=== PATIENT | female | born 1950 | race Caucasian/White ===

== ENCOUNTER 2018-06-13 12:00 | Emergency (ER) | payer MEDICARE ==
[2018-06-13 13:54] VITALS: BP 134/67
--- NOTE | 2018-06-13 14:06 | UC ---
Respiratory Complaint HPI - HPI Summary HPI Summary: 67 y/o female presents to the urgent care c/o productive cough w/ green phlegm for the past week. Pt reports symptoms started w/ a common cold, nasal congestion and clear nasal discharge. She has been taking herbal supplements to alleviate symptoms w/o any improvement. For the past 2 days she is been having chills, fever on and off, mild wheezing, specially at night time. Pt denies SOB, chest pain, abdominal pain, N/V/D. Pt used to be a heavy everyday smoker. - History of Current Complaint Chief Complaint: UCGeneralIllness Stated Complaint: RUNNY NOSE,COUGH,CONGESTION Time Seen by Provider: 06/13/18 14:03 Hx Obtained From: Patient ?: No - menopausal Onset/Duration: Gradual Onset, Lasting Weeks - 1 week, Still Present, Worse Since - 2 days Timing: Intermittent Episodes Severity Initially: Mild Severity Currently: Moderate Pain Intensity: 0 Pain Scale Used: 0-10 Numeric Character: Cough: Productive, Sputum Description: - green phlegm Aggravating Factors: Recumbent Position Alleviating Factors: OTC Meds Associated Signs And Symptoms: Positive: Fever, Chills, Wheezing, URI, Nasal Congestion, Sinus Discomfort. Negative: Dyspnea, Hemoptysis, Dizziness, Calf Swelling - Risk Factors Pulmonary Embolism Risk Factors: Negative Cardiac Risk Factors: Negative Pseudomonas Risk Factors: Negative Tuberculosis Risk Factors: Negative - Allergies/Home Medications Allergies/Adverse Reactions: Allergies Allergy/AdvReac Type Severity Reaction Status Date / Time No Known Allergies Allergy Verified 06/13/18 13:51 Home Medications: Home Medications Ascorbic Acid [Vitamin C] 1 each PO DAILY 06/13/18 [History Confirmed 06/13/18] Vitamin E 1 each PO DAILY 06/13/18 [History Confirmed 06/13/18] Vitamins A and D [Vitamin A and D] 1 each PO DAILY 06/13/18 [History Confirmed 06/13/18] PMH/Surg Hx/FS Hx/Imm Hx Previously Healthy: Yes - Pt denies PMHX - Surgical History Surgical History: Yes Surgery Procedure, Year, and Place: TONSILLECTOMY - Family History Known Family History: Positive: Cardiac Disease, Hypertension - Social History Occupation: Retired Lives: With Family Alcohol Use: Weekly Substance Use Type: None Smoking Status (MU): Former Smoker Review of Systems Constitutional: Fever, Chills Skin: Negative Eyes: Negative ENT: Nasal Discharge - green, Sinus Congestion, Sinus Pain/Tenderness Respiratory: Cough - productive w/ green phlegm, Other - wheezing Cardiovascular: Negative Gastrointestinal: Negative Genitourinary: Negative Motor: Negative Neurovascular: Negative Musculoskeletal: Negative Neurological: Negative Psychological: Negative Is Patient Immunocompromised?: No All Other Systems Reviewed And Are Negative: Yes Physical Exam - Summary Physical Exam Summary: Vital Signs Reviewed: Yes General: well developed, well nourished thin female sitting in the examining table w/o any apparent distress Eyes: Positive: Conjunctiva Clear - PERRLA, EOMI, fundi grossly normal ENT: Positive: Normal ENT inspection, Hearing grossly normal, Pharynx normal, Nasal congestion - edematous and erythematous nasal mucosa, Nasal drainage - yellowish drainage, TMs normal. Negative: Tonsillar swelling, Tonsillar exudate Neck: Positive: Supple, Nontender, No Lymphadenopathy Respiratory: no orthopnea or dyspnea. Able to speak in full sentences, no retractions or accessory muscle use, no tripod position, stridor, or head bobbing. Positive breath sounds bilaterally. Diffuse scattered wheezing and rhonchi on b/L lungs, no crackles or rales. Cardiovascular: Positive: RRR, No Murmur, Pulses Normal, Brisk Capillary Refill Abdomen Description: Positive: Nontender, No Organomegaly, Soft. Negative: CVA Tenderness (R), CVA Tenderness (L) Bowel Sounds: Positive: Present Musculoskeletal Exam: Normal Musculoskeletal: Positive: Strength Intact, ROM Intact, No Edema Neurological Exam: Normal Psychological Exam: Normal Skin Exam: Normal Triage Information Reviewed: Yes Vital Signs: Initial Vital Signs Temp 98.5 F 06/13/18 13:49 Pulse 79 06/13/18 13:49 Resp 17 06/13/18 13:49 BP 134/67 06/13/18 13:49 Pulse Ox 95 06/13/18 13:49 UC Diagnostic Evaluation - Laboratory O2 Sat by Pulse Oximetry: 95 Respiratory Course/Dx - Course Course Of Treatment: 67 y/o female presents to the urgent care c/o productive cough w/ green phlegm for the past week. Pt reports symptoms started w/ a common cold, nasal congestion and clear nasal discharge. She has been taking herbal supplements to alleviate symptoms w/o any improvement. For the past 2 days she is been having chills, fever on and off, mild wheezing, specially at night time. Pt denies SOB, chest pain, abdominal pain, N/V/D. Pt used to be a heavy everyday smoker. Hx obtained. Pt w/diffuse scattered wheezing and rhonchi on b/L lungs on examination. O2SAt: 95%. Pt given Prednisone PO taper dose and Duoneb Treatment to alleviate symptoms. Pt tolerated well treatment and lungs improved,and wheezing resolved. Chest X-ray ordered: impression:Rt basilar pnemonia. Patient prescribed levofloxacin PO, Prednisone taper dose, Albuterol neb. and Tessalon Tabs to alleviate symptoms as directed below. The patient was recommended to increase fluid intake. Take medications as recommended. Pt advised to returned to the clinic or f/u or w/ her PCP in 2-3 days to make sure symptoms are improving. All D/C instructions explained. Patient understood and agreed w/ plan of care. D/c instructions explained. Pt left clinic hemodynamically stable , A&OX3 - Differential Dx/Diagnosis Differential Diagnosis/HQI/PQRI: Asthma, Bronchitis, Influenza, Laryngitis, Lower Resp Infection, Sinusitis, Other - pneumonia Provider Diagnoses: 1- Community acquired pneumonia. 2-Wheezing Discharge - Sign-Out/Discharge Documenting (check all that apply): Patient Departure - D/c home All imaging exams completed and their final reports reviewed: Yes - Discharge Plan Condition: Stable Disposition: HOME Prescriptions: Albuterol HFA INHALER* [Ventolin HFA Inhaler*] 1 - 2 puff INH Q4H PRN #1 mdi PRN Reason: Wheezing Benzonatate CAP* [Tessalon 100 MG CAP*] 100 mg PO TID #21 cap Levofloxacin TAB* [Levaquin 750 MG TAB*] 750 mg PO DAILY #7 tab predniSONE TAB* [Deltasone 20 MG TAB*] 20 mg PO DAILY #8 tab Patient Education Materials: Community Acquired Pneumonia (ED), Wheezing (ED) Referrals: [facility] [Outside] - 3 Days Additional Instructions: 1-Please take full course of antibiotic to avoid resistance. Please take Prednisone PO taper dose as directed starting tomorrow. First dose given today. 2-Take Tessalon PO tabs as directed and use the albuterol inhaler to alleviate cough and wheezing. Increase fluid intake, rest and eat well. 3- If symptoms do not improve or worsen or your develop SOB with fever and severe wheezing please go immediately to the ER further evaluation and treatment. 4- F/u with your PCP in 3 days if not improvement of symptoms for further management. - Billing Disposition and Condition Condition: STABLE Disposition: Home
[2018-06-13] MEDS ORDERED: Albuterol/Ipratropium NEB.SOL* Albuterol 2.5 MG/Ipratropium 0.5 MG 3 ML INH ONE (14:15)
[2018-06-13] MEDS ORDERED: predniSONE TAB* 20 MG PO ONE (14:15)
--- NOTE | 2018-06-13 15:53 | RAD ---
Indication: Productive cough and fever. 2 views of the chest including dual energy PA views are reviewed. No prior study is available for comparison. No mediastinal shift is noted. Heart is of normal size and configuration. Airspace disease in the right base is noted consistent with right basilar pneumonia. Left lung field is clear. IMPRESSION: Findings consistent with right basilar pneumonia.
== END 2018-06-13 16:11 | disposition home or self-care (01) ==
LOC: UCCORT 12:00
DX: J18.9 Pneumonia, unspecified organism (principal); Z87.891 Personal history of nicotine dependence
CPT/HCPCS: 71046; 99202; A9270-GY; G0463; J7512